=== PATIENT | female | born 1990 | race Two or more races ===

== ENCOUNTER 2023-09-24 19:54 | Observation (INO) | payer BC, MEDICAID ==
[~2023-09-24] VITALS: Ht 152.4 cm; Wt 79.4 kg
[2023-09-24] MEDS ORDERED: PREN-96 PO (20:57)
== END 2023-09-24 23:13 | disposition home or self-care (01) ==
LOC: LDRP 19:54
PROVIDERS: ADMIT Obstetrics & Gynecology; ATTEND Obstetrics & Gynecology
DX: O46.92 Antepartum hemorrhage, unspecified, second trimester (principal); O99.891 Other specified diseases and conditions complicating pregnancy; M54.9 Dorsalgia, unspecified; Z3A.20 20 weeks gestation of pregnancy
CPT/HCPCS: 59025; 81002; 87086; 94760; G0378; 76815

== ENCOUNTER 2024-02-07 10:00 | Observation (INO) | payer BC, MEDICAID ==
[~2024-02-07] VITALS: Ht 152.4 cm; Wt 97.5 kg
[~2024-02-07 10:00] MED LIST: PREN-96 PO
[2024-02-07 12:41] LABS: Fern Testing Negative
== END 2024-02-07 13:00 | disposition home or self-care (01) ==
LOC: LDRP 10:00 → UNDOADMOB 10:00 → LDRP 10:37 → UNDODISOB 13:00
PROVIDERS: ADMIT Obstetrics & Gynecology; ATTEND Obstetrics & Gynecology
DX: O48.0 Post-term pregnancy (principal); Z3A.40 40 weeks gestation of pregnancy
CPT/HCPCS: 59025; 76818; 81002; 84112; 94760; G0378; Q0114

== ENCOUNTER 2024-02-07 22:57 | Inpatient (IN) | payer BC, MEDICAID ==
[~2024-02-07] VITALS: Ht 152.4 cm; Wt 97.5 kg
[2024-02-07] MEDS ORDERED: BUTORPHANOL TARTRATE 2 MG/1 ML VIAL IV PRN ×2 (23:30)
[2024-02-07] MEDS ORDERED: LIDOCAINE 2%HCL (LOCAL ANESTH.) INJ 20ML MDV IJ PRN (23:30)
[2024-02-07] MEDS: LACTATED RINGER'S 1,000 ML IV SCH (23:36)
[2024-02-07 23:46] LABS: Urine Amorphous Crystal FEW /hpf (None Seen); Urine Bacteria FEW /hpf (None Seen); Urine Blood Negative /uL (Negative); Urine Clarity Clear (Clear); Urine Color Light-Yellow (Yellow); Urine Mucus FEW (None Seen); Urine Protein, UAD TRACE (Negative); Urine Urobilinogen Normal (Negative); Urine WBC 4 /hpf (0 - 5); Urine pH 6.5 (5.0-9.0)
[2024-02-07 23:48] LABS: Basophils # (auto) 0.1 10 ^3/uL (0-0.2); Basophils % (auto) 0.7 % (0.0-2.0); Eosinophils # (auto) 0.1 10 ^3/uL (0-0.8); Hematocrit 36.2 % (36.0-46.0); Hemoglobin 12.2 g/dL (12.2-16.2); Lymphocytes # (auto) 1.8 10 ^3/uL (0.4-5.4); Lymphocytes % (auto) 19.3 % (10.0-50.0); Mean Corpuscular Hemoglobin 29.8 pg (28.0-32.0); Mean Corpuscular Hgb Conc. 33.7 g/dL (32.0-36.0); Mean Corpuscular Volume 88.3 fL (80.0-100.0); Monocytes # (auto) 0.6 10 ^3/uL (0-1.3); Monocytes % (auto) 6.6 % (0.0-12.0); Neutrophils # (auto) 6.7 10 ^3/uL (1.6-8.6); Neutrophils % (auto) 72.4 % (37.0-80.0); Nucleated Red Blood Cells % 0.1 %; Platelet Count (auto) 187 10^3/uL (140-450); Red Cell Distribution Width 16.5 % (11.8-14.3); White Blood Cell 9.2 10^3/uL (4.4-10.8)
[2024-02-07 23:57] LABS: Albumin 3.6 g/dL (3.2-4.8); Alkaline Phosphatase 269 U/L (46-116); Anion Gap 11 (5-15); Aspartate Aminotransferase 16 U/L (13-40); BUN/Creatinine Ratio 14.3 (10.0-20.0); Bilirubin, Total 0.3 mg/dL (0.2-1.0); Blood Urea Nitrogen 10 mg/dL (9-23); Carbon Dioxide 18 mmol/L (20-30); Chloride 109 mmol/L (98-107); Glucose 103 mg/dL (74-106); Potassium 3.8 mmol/L (3.5-5.1); Sodium 138 mmol/L (136-145); Total Protein 6.2 g/dL (5.7-8.2)
[2024-02-07 23:59] LABS: Alanine Aminotransferase 9 U/L (7-40)
[2024-02-08 00:02] LABS: INR 0.93 (0.9-1.15); Partial Thromboplastin Time 28.7 SEC (24.5-34.5); Prothrombin Time 9.9 sec (9.3-11.8)
[2024-02-08 01:57] LABS: Amphetamine Screen, Urine Neg (NEGATIVE)
[2024-02-08 01:58] LABS: Barbiturate Scree,Urine Neg (NEGATIVE); Benzodiazephine Screen, Urine Neg (NEGATIVE); Cannabinoid Screen, Urine Neg (NEGATIVE); Cocaine Screen, Urine Neg (NEGATIVE); Opiate Scree,Urine Neg (NEGATIVE); Phencyclidine Screen, Urine Neg (NEGATIVE)
[2024-02-08] MEDS: PHISODERM TOP SOLN 240ML BTL TOP PRN (03:14)
[2024-02-08] MEDS: WITCH HAZEL-GLYCERIN PAD TOP PRN (03:14)
[2024-02-08] MEDS: DERMOPLAST 60ML BOTTLE TOP PRN (03:14)
[2024-02-08] MEDS ORDERED: TERBUTALINE SULFATE 1 MG/ML 1ML VIAL SC PRN (03:15)
[2024-02-08] MEDS: LACT. RINGERS/OXYTOCIN 20UNITS 1,000 ML IV SCH (03:59)
[2024-02-08] MEDS ORDERED: NALOXONE HCL 0.4 MG/ML VIAL IV ONE (06:45)
[2024-02-08] MEDS ORDERED: ePHEDrine SULFATE 50 MG/ML AMP IV ONE (06:45)
[2024-02-08] MEDS: METHYLERGONOVINE MALEATE 0.2 MG/ML AMP IM ONE ×2 (08:53→10:00)
[2024-02-08] MEDS: LACT. RINGERS/OXYTOCIN 20UNITS 500 ML IV ONE ×2 (09:06)
[2024-02-08] MEDS: ROPIVACAINE HCL 200 ML ONE (09:07)
[2024-02-08] MEDS: ACETAMINOPHEN 325 MG TAB PO PRN (10:00)
[2024-02-08] MEDS: IBUPROFEN 600 MG TAB PO PRN (11:14)
[2024-02-08] MEDS: ceFAZolin 1GM/50ML 50 ML IV SCH (11:58)
[2024-02-08 12:40] VITALS: TEMP 100.2
[2024-02-08 15:00] VITALS: BP 101/63; PULSE 70; RESP 16; TEMP 99.4; O2SAT 98
[2024-02-08 18:30] VITALS: BP 99/64; PULSE 65; RESP 17; TEMP 98.4; O2SAT 96
[2024-02-08 23:00] VITALS: BP 109/65; PULSE 58; RESP 17; TEMP 97.9; O2SAT 98
[2024-02-09 03:00] VITALS: BP 110/65; PULSE 61; RESP 16; TEMP 98.2; O2SAT 98
[2024-02-09 07:00] VITALS: BP 108/70; PULSE 63; RESP 16; TEMP 98.7; O2SAT 98
[2024-02-09 11:00] VITALS: BP 108/69; PULSE 74; RESP 16; TEMP 97.8; O2SAT 99
[2024-02-09 11:23] LABS: RPR Non Reactive (Non Reactive)
== END 2024-02-09 13:00 | disposition home or self-care (01) | DRG 807 ==
LOC: LDRP 22:57
PROVIDERS: ADMIT Obstetrics & Gynecology; ATTEND Obstetrics & Gynecology
PROC: 10E0XZZ Delivery of Products of Conception, External Approach (ICD-10-PCS; principal; 2024-02-08)
PROC: 3E0R3BZ Introduction of Anesthetic Agent into Spinal Canal, Percutaneous Approach (ICD-10-PCS; 2024-02-08)
PROC: 00HU33Z Insertion of Infusion Device into Spinal Canal, Percutaneous Approach (ICD-10-PCS; 2024-02-08)
DX: O69.81X0 Labor and delivery complicated by cord around neck, without compression, not applicable or unspecified (principal); Z37.0 Single live birth; Z3A.40 40 weeks gestation of pregnancy
CPT/HCPCS: 36415; 59025; 59409; 62282; 80053; 80307; 81001; 85025; 85610; 85730; 86592; 86803; 86850; 86900; 86901; 94760; 94762; 96360; 96361; 96365; 96366; 96372; G0378; J2590